=== PATIENT | male | born 1975 | race African-American/Black ===

== ENCOUNTER 2024-05-06 10:27 | Emergency (ER) | payer BC ==
[~2024-05-06] VITALS: Ht 193 cm; Wt 128.0 kg
[2024-05-06 10:31] VITALS: O2SAT 98
[2024-05-06 10:36] VITALS: BP 153/96; PULSE 76; RESP 14; TEMP 36.5; O2SAT 99
== END 2024-05-06 11:44 | disposition home or self-care (01) ==
LOC: ER 10:27
DX: M79.18 Myalgia, other site (principal)
CPT/HCPCS: 99281